=== PATIENT | male | born 1960 | race African-American/Black ===

== ENCOUNTER 2023-10-21 19:52 | Emergency (ER) | payer OTHER, MEDICAID ==
[~2023-10-21] VITALS: Ht 175.3 cm; Wt 64.0 kg
[~2023-10-21 19:52] MED LIST: CEPH500T MT
[2023-10-21 20:04] VITALS: O2SAT 100
[2023-10-21 21:00] VITALS: TEMP 98.2
[2023-10-21 22:04] VITALS: BP 104/65; PULSE 88; RESP 15
== END 2023-10-21 22:11 | disposition home or self-care (01) ==
LOC: ER 19:52
DX: R94.8 Abnormal results of function studies of other organs and systems (principal); R51.9 Headache, unspecified; Z00.00 Encounter for general adult medical examination without abnormal findings
CPT/HCPCS: 99284